=== PATIENT | female | born 1955 | race Caucasian/White ===

== ENCOUNTER → 2017-02-17 | Outpatient (CLI) | payer BC ==
[~2017-02-17] MED LIST: ASPIRIN E.C. 8181 MG PO; BENADRYL PO; BYSTOLIC10 MG PO; METOPROLOL25 MG PO; MICARDIS40 MG PO; NITROQUICK0.4 MG SL; NTG 0.4 SL; PLAVIX 75MG TAB75 MG PO; PREMARIN0.625 MG TOP; ZOCOR 40MG40 MG PO
== END ==
LOC: MC.RAD 11:26
DX: Z12.31 Encounter for screening mammogram for malignant neoplasm of breast (principal)

== ENCOUNTER → 2018-02-19 | Outpatient (CLI) | payer BC | LOC: MC.RAD 10:39 | DX: Z12.31 Encounter for screening mammogram for malignant neoplasm of breast (principal) ==

== ENCOUNTER → 2019-02-26 | Outpatient (CLI) | payer BC | LOC: MC.RAD 11:08 | DX: Z12.31 Encounter for screening mammogram for malignant neoplasm of breast (principal) ==

== ENCOUNTER → 2020-06-02 | Outpatient (CLI) | payer BC | LOC: MC.RAD 07:45 | DX: Z12.31 Encounter for screening mammogram for malignant neoplasm of breast (principal) ==

== ENCOUNTER 2020-06-20 12:37 | Emergency (ER) | payer BC ==
[~2020-06-20] VITALS: Ht 165.1 cm; Wt 54.1 kg
[2020-06-20 12:44] VITALS: TEMP 96.1
[2020-06-20] MEDS ORDERED: ZOFRAN ODT8 MG PO (13:03)
[2020-06-20 13:12] LABS: BASO % 0.5 % (0.0-2.0); EOS # 0.1 (0.0-0.7); EOS % 1.6 % (0-4.0); GRAN # 3.9 (1.4-6.5); GRAN % 47.2 % (42.2-75.2); HEMATOCRIT 41.3 % (37.0-47.0); HEMOGLOBIN 13.6 g/dl (12.5-16.0); LYMPH # 3.4 (1.2-3.4); LYMPH % 40.9 % (20.0-51.0); MEAN CELL VOLUME 92 fl (80.0-100.0); MEAN CORPUSCULAR HEMOGLOBIN 30 pg (27.0-31.0); MEAN CORPUSCULAR HGB CONC 33 g/dl (33.0-37.0); MEAN PLATELET VOLUME 10.6 fl (7.4-10.4); MONO # 0.8 (0.1-0.6); MONO % 9.6 % (1.7-9.3); PLATELET COUNT 239 K/mm3 (130-400); RED BLOOD COUNT 4.51 M/mm3 (4.10-5.30); REDCELL DISTRIBUTION WIDTH-CV 13.2 % (11.5-14.5)
[2020-06-20 13:20] LABS: BILIRUBIN,TOTAL 0.7 mg/dL (0.0-1.0); CALCIUM 9.3 mg/dL (8.4-10.2); CREATININE, serum 0.79 (0.52-1.25); POTASSIUM 3.6 mmol/L (3.4-5.0)
[2020-06-20] MEDS ORDERED: CLARITIN 1010 MG/TAB PO (13:55)
[2020-06-20] MEDS ORDERED: EVISTA 60MG60 MG/TAB PO (13:55)
[2020-06-20] MEDS ORDERED: TAZTIA120 (13:56)
[2020-06-20 15:11] VITALS: BP 112/48; PULSE 60
== END 2020-06-20 15:08 | disposition home or self-care (01) ==
LOC: COL.ER 12:37
PROVIDERS: Emergency Medicine
DX: S06.0X0A Concussion without loss of consciousness, initial encounter (principal); S00.83XA Contusion of other part of head, initial encounter; I25.2 Old myocardial infarction; Z79.82 Long term (current) use of aspirin; W01.198A Fall on same level from slipping, tripping and stumbling with subsequent striking against other object, initial encounter; Y92.512 Supermarket, store or market as the place of occurrence of the external cause
CPT/HCPCS: J2270; J2405; J2550

== ENCOUNTER → 2021-06-04 | Outpatient (CLI) | payer BC ==
[~2021-06-04] MED LIST changes: +CLARITIN 1010 MG/TAB PO; +EVISTA 60MG60 MG/TAB PO; +TAZTIA120; +ZOFRAN ODT8 MG PO
== END ==
LOC: MC.RAD 07:51
DX: Z12.31 Encounter for screening mammogram for malignant neoplasm of breast (principal)

== ENCOUNTER → 2021-11-09 | Outpatient (CLI) | payer BC | LOC: COL.RAD 13:43 | DX: N13.2 Hydronephrosis with renal and ureteral calculous obstruction (principal); Z90.710 Acquired absence of both cervix and uterus ==

== ENCOUNTER → 2022-06-06 | Outpatient (CLI) | payer MEDICARE, BC ==
[~2022-06-06] MED LIST changes: +CALCIUM 600MG+D1 TAB PO; +CRESTOR 10MG10 MG PO; +EPA FISH OIL1 SGL PO; +MULTIVITAMIN200 MCG PO; +RESTASIS MULTI5.5 ML OP; +THE MEDICINE S200 M2 PO; +VITAMIN E 400 U4001 PO; +XALATAN EYE DROPS OU
== END ==
LOC: MC.RAD 08:51
DX: Z12.31 Encounter for screening mammogram for malignant neoplasm of breast (principal)

== ENCOUNTER 2022-06-15 14:32 | Outpatient (CLI) | payer MEDICARE, BC ==
[~2022-06-15] VITALS: Ht 165.1 cm; Wt 58.0 kg
[~2022-06-15 14:32] MED LIST changes: -CALCIUM 600MG+D1 TAB PO; -CRESTOR 10MG10 MG PO; -EPA FISH OIL1 SGL PO; -MULTIVITAMIN200 MCG PO; -RESTASIS MULTI5.5 ML OP; -THE MEDICINE S200 M2 PO; -VITAMIN E 400 U4001 PO; -XALATAN EYE DROPS OU
[2022-06-15] MEDS ORDERED: CRESTOR 10MG10 MG PO (15:03)
[2022-06-15] MEDS ORDERED: RESTASIS MULTI5.5 ML OP (15:03)
[2022-06-15] MEDS ORDERED: XALATAN EYE DROPS OU (15:04)
[2022-06-15] MEDS ORDERED: CALCIUM 600MG+D1 TAB PO (15:05)
[2022-06-15] MEDS ORDERED: VITAMIN E 400 U4001 PO (15:05)
[2022-06-15] MEDS ORDERED: EPA FISH OIL1 SGL PO (15:06)
[2022-06-15] MEDS ORDERED: MULTIVITAMIN200 MCG PO (15:06)
[2022-06-15] MEDS ORDERED: THE MEDICINE S200 M2 PO (15:06)
[2022-06-15 15:56] VITALS: BP 151/77; PULSE 50; TEMP 97.8
[2022-06-15 16:40] VITALS: BP 143/69; PULSE 49
== END 2022-06-15 16:45 | disposition home or self-care (01) ==
LOC: EUO 14:32
DX: M81.0 Age-related osteoporosis without current pathological fracture (principal)
CPT/HCPCS: J3489